=== PATIENT | female | born 1950 | race Caucasian/White ===

== ENCOUNTER → 2024-07-04 08:08 | Outpatient (REF) | payer MEDICARE, BC, SELFPAY ==
[2024-07-04 09:49] LABS: ALT (SGPT) 26 U/L (0-35); AST (SGOT) 22 U/L (14-36); Albumin 4.5 g/dl (3.5-5.0); Alkaline Phosphatase 112 U/L (38-126); Blood Urea Nitrogen 18 mg/dl (7-17); Calcium 9.5 mg/dl (8.4-10.2); Carbon Dioxide 24 mmol/L (22-30); Chloride 103 mmol/L (98-107); Glucose 134 mg/dl (70-99); HDL Cholesterol 60 mg/dl; LDL Cholesterol, Calculated 72 mg/dl; Potassium 4.1 mmol/L (3.5-5.1); Sodium 141 mmol/L (135-145); Total Bilirubin 0.6 mg/dl (0.2-1.3); Total Cholesterol 160 mg/dl (50-199); Total Protein 6.8 g/dl (6.3-8.2); Triglyceride 144 mg/dl (10-149); Very Low Density Lipoprotein 28 mg/dl (0-30); eGFR > 60.00
[2024-07-04 10:21] LABS: TSH 4.69 uIU/ml (0.47-4.68)
[2024-07-04 10:33] LABS: Microalbumin, Random Urine 1.6 mg/dl (0.6-1.7); Microalbumin/creatinine Ratio 23.7 mg/g
[2024-07-04 11:40] LABS: Glycohemoglobin (HgbA1c) 7.7 % (4.0-5.6)
== END ==
LOC: HWLAB 08:08
PROVIDERS: ATTENDING PHYSICIAN Internal Medicine Endocrinology, Diabetes & Metabolism; FAMILY PHYSICIAN Internal Medicine
DX: E11.9 Type 2 diabetes mellitus without complications (principal); E78.00 Pure hypercholesterolemia, unspecified; E89.0 Postprocedural hypothyroidism
CPT/HCPCS: 36415; 80053; 80061; 82043; 82570; 83036; 84443

== ENCOUNTER → 2024-11-08 09:08 | Outpatient (REF) | payer MEDICARE, BC, SELFPAY ==
[2024-11-08 12:53] LABS: ALT (SGPT) 34 U/L (0-35); AST (SGOT) 24 U/L (14-36); Albumin 4.4 g/dl (3.5-5.0); Alkaline Phosphatase 103 U/L (38-126); Blood Urea Nitrogen 16 mg/dl (7-17); Calcium 9.3 mg/dl (8.4-10.2); Carbon Dioxide 30 mmol/L (22-30); Chloride 99 mmol/L (98-107); Glucose 129 mg/dl (70-99); HDL Cholesterol 58 mg/dl; LDL Cholesterol, Calculated 57 mg/dl; Potassium 4.3 mmol/L (3.5-5.1); Sodium 138 mmol/L (135-145); Total Bilirubin 0.7 mg/dl (0.2-1.3); Total Cholesterol 146 mg/dl (50-199); Total Protein 6.9 g/dl (6.3-8.2); Triglyceride 158 mg/dl (10-149); Very Low Density Lipoprotein 31 mg/dl (0-30); eGFR > 60.00
[2024-11-08 13:03] LABS: Glycohemoglobin (HgbA1c) 7.7 % (4.0-5.6)
[2024-11-08 13:26] LABS: Microalbumin, Random Urine 1.2 mg/dl (0.6-1.7)
[2024-11-08 13:30] LABS: Microalbumin/creatinine Ratio 18.2 mg/g
== END ==
LOC: HWLAB 09:08
PROVIDERS: ATTENDING PHYSICIAN Internal Medicine; REFERRING PHYSICIAN Internal Medicine Endocrinology, Diabetes & Metabolism
DX: E11.9 Type 2 diabetes mellitus without complications (principal); E78.5 Hyperlipidemia, unspecified
CPT/HCPCS: 36415; 80053; 80061; 82043; 82570; 83036

== ENCOUNTER → 2025-01-03 08:32 | Outpatient (REF) | payer MEDICARE, BC, SELFPAY ==
[2025-01-03 14:09] LABS: ALT (SGPT) 32 U/L (0-35); AST (SGOT) 23 U/L (14-36); Albumin 4.8 g/dl (3.5-5.0); Alkaline Phosphatase 100 U/L (38-126); Blood Urea Nitrogen 20 mg/dl (7-17); Calcium 9.4 mg/dl (8.4-10.2); Carbon Dioxide 28 mmol/L (22-30); Chloride 98 mmol/L (98-107); Glucose 138 mg/dl (70-99); HDL Cholesterol 59 mg/dl; LDL Cholesterol, Calculated 63 mg/dl; Potassium 4.3 mmol/L (3.5-5.1); Sodium 137 mmol/L (135-145); Total Cholesterol 146 mg/dl (50-199); Triglyceride 123 mg/dl (10-149); Very Low Density Lipoprotein 24 mg/dl (0-30); eGFR > 60.00
[2025-01-03 14:13] LABS: Glycohemoglobin (HgbA1c) 7.6 % (4.0-5.6)
[2025-01-03 14:17] LABS: Microalbumin, Random Urine 1.1 mg/dl (0.6-1.7); Microalbumin/creatinine Ratio 14.8 mg/g
[2025-01-03 14:37] LABS: TSH 2.84 uIU/ml (0.47-4.68)
== END ==
LOC: HWLAB 08:32
PROVIDERS: ATTENDING PHYSICIAN Internal Medicine Endocrinology, Diabetes & Metabolism; FAMILY PHYSICIAN Internal Medicine
DX: E89.0 Postprocedural hypothyroidism (principal); E11.9 Type 2 diabetes mellitus without complications; E78.00 Pure hypercholesterolemia, unspecified; I10 Essential (primary) hypertension
CPT/HCPCS: 36415; 80053; 80061; 82043; 82570; 83036; 84443

== ENCOUNTER → 2025-08-21 09:43 | Outpatient (REF) | payer MEDICARE, BC, SELFPAY ==
[2025-08-21 13:19] LABS: ALT (SGPT) 27 U/L (0-35); AST (SGOT) 22 U/L (14-36); Albumin 4.7 g/dl (3.5-5.0); Alkaline Phosphatase 88 U/L (38-126); Blood Urea Nitrogen 17 mg/dl (7-17); Calcium 9.6 mg/dl (8.4-10.2); Carbon Dioxide 26 mmol/L (22-30); Chloride 101 mmol/L (98-107); Glucose 149 mg/dl (70-99); HDL Cholesterol 65 mg/dl; LDL Cholesterol, Calculated 79 mg/dl; Potassium 4.2 mmol/L (3.5-5.1); Sodium 135 mmol/L (135-145); Total Protein 7.3 g/dl (6.3-8.2); Very Low Density Lipoprotein 28 mg/dl (0-30); eGFR > 60.00
[2025-08-21 13:35] LABS: TSH 22.50 uIU/ml (0.47-4.68)
[2025-08-21 13:46] LABS: Microalb - Urine Creatinine 47.200 mg/dl
[2025-08-21 13:52] LABS: Microalbumin, Random Urine 2.1 mg/dl (0.6-1.7)
[2025-08-21 15:01] LABS: Glycohemoglobin (HgbA1c) 8.0 % (4.0-5.6)
== END ==
LOC: HWLAB 09:43
PROVIDERS: ATTENDING PHYSICIAN Internal Medicine Endocrinology, Diabetes & Metabolism; FAMILY PHYSICIAN Internal Medicine
DX: E11.9 Type 2 diabetes mellitus without complications (principal); E78.00 Pure hypercholesterolemia, unspecified; I10 Essential (primary) hypertension; E89.0 Postprocedural hypothyroidism; E78.5 Hyperlipidemia, unspecified
CPT/HCPCS: 36415; 80053; 80061; 82043; 82570; 83036; 84443

== ENCOUNTER → 2025-08-31 07:25 | Outpatient (REF) | payer MEDICARE, BC, SELFPAY | LOC: HWRAD 07:25 | PROVIDERS: ATTENDING PHYSICIAN Internal Medicine Gastroenterology; FAMILY PHYSICIAN Internal Medicine | DX: E66.3 Overweight (principal) | CPT/HCPCS: 76700 ==